=== PATIENT | male | born 1985 | race Two or more races ===

== ENCOUNTER 2025-03-30 10:00 | Outpatient (AMB) | payer OTHER, SELFPAY ==
[2025-03-30 10:10] VITALS: BP 122/76; PULSE 81; RESP 18; TEMP 36.2; O2SAT 97; BMI 25.3
--- NOTE | 2025-03-30 10:10 | MHC.PC.OV ---
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 Accompanied by: Self / Same As Patient Allergies No Known Allergies Allergy (Verified 03/30/25 10:40) Medication List - Last Reconciled 03/30/25 by BETSY Ceja buprenorphine-naloxone 2-0.5 mg (Suboxone) 1 film buccal DAILY Tobacco use date assessed: 03/30/25 Dental Screening Dental Screen Date: 03/30/25 Did you have a dental visit in the last 12 months?: No Did you have a dental problem in the last 6 months where you did not have access to dental care?: No Was dental information given to patient?: No 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 His primary complaint is frequent episodes of chest pain and tightness, which prompted him to make the appointment. These episodes are associated with pain radiating to his left arm, heart palpitations, and nausea. The symptoms occur spontaneously without a clear trigger. He also reports palpitations occurring without chest tightness. One severe episode prompted him to drive to the emergency room, but the symptoms subsided after three hours of waiting in his car, and he did not seek evaluation. Past medical history is significant for a prior history of opioid use (Percocet), and he is currently on Suboxone, which he obtains from the [facility] in [place]. He also reports chronic constipation, generalized fatigue, and feeling excessively sleepy after work. Family history is notable for his biological father having a myocardial infarction at age 36, requiring a stent. His maternal side has a history of heart problems, diabetes, and dementia. The patient did not reports anxiety or depression, however the patient scored 11 on the PHQ-9 and 6 on ONOFRE scale. 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 1. Little interest or pleasure in doing things: more than half the days 2. Feeling down, depressed, or hopeless: several days 3. Trouble falling or staying asleep, or sleeping too much: nearly every day 4. Feeling tired or having little energy: nearly every day 5. Poor appetite or overeating: several days 6. Feeling bad about yourself - or that you are a failure or have let yourself or your family down: not at all 7. Trouble concentrating on things, such as reading the newspaper or watching television: several days 8. Moving or speaking so slowly that other people could have noticed. Or the opposite - being so fidgety or restless that you have been moving around a lot more than usual: not at all 9. Thoughts that you would be better off or of hurting yourself in some way: not at all Total score: 11 Depression Screening Interpretation: Positive Depression Screening Done: Yes 74710 - PHQ-9 Billing: Yes Source: Developed by Drs. Flaquito Dumont, Yael Sumner, Isaac Doss and colleagues, with an educational amrit from [employer]. Thrive Questionnaire Date Thrive assessed: 03/30/25 I am a: Patient What is your living situation today?: I have a steady place to live Within the past 12 months, did the food you bought not last and you didn't have the money to get more?: Never true Within the past 12 months, did you worry whether your food would run out before you got money to buy more?: Never true Do you have trouble paying for medicines?: No Do you have trouble getting transportation to medical appointments?: No Do you have trouble paying your heating and electricity bill?: No Do you have trouble taking care of your child, family member or friend?: No Do you have trouble with day-to-day activities such as bathing, preparing meals, shopping, managing finances, etc.?: No Are you currently unemployed and looking for a job?: No Are you interested in more education?: No Please select the resources that you would like help with: None Currently or been in a relationship where the following occur: No concerns reported THRIVE Score: 0 AUDIT C Alcohol Use Questionnaire (AUDIT-C) 1. How often do you have a drink containing alcohol?: Monthly or less 2. How many drinks containing alcohol do you have on a typical day when you are drinking?: 1 or 2 3. How often do you have six or more drinks on one occasion?: Never Total Score: 1 ONOFRE-7 AMB Questionnaire ONOFRE-7 Date ONOFRE - 7 assessed: 03/30/25 Feeling nervous, anxious, or on edge: 1 = Several days Not being able to stop or control worryin = Not at all Worrying too much about different things: 1 = Several days Trouble relaxin = More than half the days Being so restless that it is hard to sit still: 1 = Several days Becoming easily annoyed or irritable: 1 = Several days Feeling afraid as if something awful might happen: 0 = Not at all Total ONOFRE-7 score (0-4 normal; 5-9 mild; 10-14 moderate; 15-21 severe): 6 Source: Developed by Drs. Flaquito Dumont, Yael Sumner, Isaac Doss and colleagues, with an educational amrit from [employer] ONOFRE-7 Assessment Billing ONOFRE-7 Assessment Tool: ONOFRE-7 Assessment 18594 Review of Systems Const Reports daytime sleepiness (-usually after work), Reports fatigue (Generalized) and Denies headache(s) Eyes Denies loss of vision ENT Denies vertigo, Reports dizziness (Associated with heart palpitation and chest tightness), Denies headache(s) and Denies sore throat Card Reports chest pain (Recurrent), Reports rapid heart rate (Recurrent), Denies leg edema, Denies lightheadedness and Reports radiating jaw, neck or arm pain (Down left arm-recurrent) Resp Denies cough, Denies hemoptysis and Denies wheezing GI Denies abdominal pain, Denies melena, Reports constipation, Denies diarrhea, Reports nausea and Denies vomiting Denies dysuria, Denies urinary frequency and Denies urinary urgency Musc Denies arthralgias, Denies joint swelling, Denies numbness and Denies tingling Neuro Denies Abnormal speech present, Denies behavioral changes, Denies vertigo, Reports dizziness (Associated with heart palpitation and chest tightness), Denies headache(s), Denies loss of vision, Denies memory loss, Denies numbness and Denies tingling Psych Denies anxiety, Denies behavioral changes, Denies depression, Denies memory loss and Denies panic attacks Endo Reports fatigue (Generalized) Vicente/Lymph Denies easy bleeding and Denies easy bruising Aller/Immun Denies wheezing Physical exam (Primary Care) Vital Signs: Last Vital Signs Temp 97.1 F 03/30/25 10:10 Pulse 81 03/30/25 10:10 Resp 18 03/30/25 10:10 BP 122/76 03/30/25 10:10 Pulse Ox 97 03/30/25 10:10 Oxygen Delivery Method Room Air 03/30/25 10:10 BMI result Body Mass Index 25.3 Tobacco/Smoking Status: Tobacco use Status Tobacco use date assessed 03/30/25 03/30/25 10:17 Patient Tobacco Use Status Never used Tobacco 03/30/25 10:17 e-Cigarette/Vaping Use Never Used 03/30/25 10:17 PHQ-9: PHQ-9 Score PHQ-9: Total score 11 03/30/25 10:40 Depression Screening Interpretation: Positive Thrive Assessment: Date of Thrive Assessment Date Thrive assessed 03/30/25 03/30/25 10:17 Currently or been in a relationship where the following occur: No concerns reported Const General: healthy appearing, no acute distress, alert and awake Nutritional Appearance: well nourished Orientation/consciousness: oriented to person, oriented to place and oriented to time HENMT Ears: TM's normal bilaterally General nose exam: Normal nasal mucous membranes and turbinates present Eyes Conjunctivae: conjunctivae normal Sclerae: sclerae normal Pupils: Equal, round and reactive pupils present Neck Neck: Yes no lymphadenopathy and Yes no JVD Thyroid: Thyroid normal Carotids: no bruits Resp Effort & Inspection: normal respiratory effort and not tachypneic Auscultation: no crackles, no rales, no rhonchi and no wheezes Cardio Rate: regular rate Rhythm: regular rhythm Heart sounds: S1 normal heart sound present, S2 normal heart sound present, no murmurs and normal S1 and S2 GI Palpation (GI): Soft to palpation, nontender, no hepatomegaly and no splenomegaly Auscultation: normal bowel sounds Skin General skin exam: no rashes or lesions noted and dry skin Neuro General: oriented to person, oriented to place and oriented to time Cranial nerves: Yes Equal, round and reactive pupils present Speech: No Abnormal speech present Gait exam (Neuro): Normal gait present Motor exam (neuro): no tremor noted Extrem Right upper extremity: full ROM Left upper extremity: full ROM Right lower extremity: full ROM; no edema Left lower extremity: full ROM; no edema Psych Mental Status: mental status grossly normal Speech and movement: Normal speech and movement present Affect: normal affect Attitude: cooperative Thought process: Normal thought process present Coding Level of Care Code New Pt Level 4 (02757) Diagnoses Precordial pain R07.2 Chest pain type: precordial pain Heart palpitations R00.2 Familial heart disease I51.89 History of opioid abuse F11.11 Low energy R53.83 Constipation, unspecified constipation type K59.00 Constipation type: unspecified constipation type Additional Codes PHQ-9 - 16712 - PHQ-9 Billing: Yes ([id number]) ONOFRE-7 Assessment Billing - ONOFRE-7 Assessment Tool: ONOFRE-7 Assessment 36299 ([id number]) Time Spent (min) 38 Assessment & Plan Assessment & Plan (1) Chest pain: Code(s): R07.9 - Chest pain, unspecified Category: Medical Qualifiers: Chest pain type: precordial pain Qualified Code(s): R07.2 - Precordial pain Plan: The patient's symptoms of chest pain, left arm radiation, and palpitations are highly concerning, particularly given his strong family history of premature coronary artery disease, with his father having a myocardial infarction at age 36. The main goal is to rule out a cardiac etiology. A comprehensive cardiac workup will be initiated, including a full panel of fasting labs, an EKG, a 7-day Holter monitor to capture any arrhythmias, and a cardiac stress test. Counseling was provided on increasing hydration, as dehydration can contribute to palpitations and cardiac strain. (2) Heart palpitations: Code(s): R00.2 - Palpitations Category: Medical Plan: Labs ordered to further evaluate along with a 7 day Holter monitor. Avoid triggers like caffeine and alcohol (3) Familial heart disease: Code(s): I51.89 - Other ill-defined heart diseases Category: Medical Plan: Patient father had a myocardial infarction at 30 6 years old and needed to be stented. We will complete a full cardiac workup to further evaluate his complaints. (4) History of opioid abuse: Code(s): F11.11 - Opioid abuse, in remission Category: Medical Plan: Patient has a history of opioid use. He is currently on Suboxone therapy. Follow up with Suboxone clinic as scheduled (5) Low energy: Code(s): R53.83 - Other fatigue Category: Medical Plan: The patient reports constant fatigue and lack of energy. In response to his request, a testosterone level will be included in the lab workup to evaluate for a potential hormonal contribution. (6) Constipation: Code(s): K59.00 - Constipation, unspecified Category: Medical Qualifiers: Constipation type: unspecified constipation type Qualified Code(s): K59.00 - Constipation, unspecified Plan: The patient's chronic constipation is likely multifactorial, related to his reported low water intake, high soda consumption, and possible low dietary fiber. He was counseled to significantly increase his daily fluid intake and consider trying a fiber supplement. Orders: Orders Hemoglobin A1c 03/30/25 R00.2 - Palpitations, R07.89 - Other chest pain, R07.9 - Chest pain, unspecified, R53.83 - Other fatigue, Z00.00 - Encounter for general adult medical examination without abnormal findings Testosterone, Free/Total 03/30/25 R00.2 - Palpitations, R07.89 - Other chest pain, R07.9 - Chest pain, unspecified, R53.83 - Other fatigue, Z00.00 - Encounter for general adult medical examination without abnormal findings TSH reflex Free T4 03/30/25 R00.2 - Palpitations, R07.89 - Other chest pain, R07.9 - Chest pain, unspecified, R53.83 - Other fatigue, Z00.00 - Encounter for general adult medical examination without abnormal findings Vitamin D 25-OH Total 03/30/25 R00.2 - Palpitations, R07.89 - Other chest pain, R07.9 - Chest pain, unspecified, R53.83 - Other fatigue, Z00.00 - Encounter for general adult medical examination without abnormal findings Complete Blood Count Auto Diff 03/30/25 R00.2 - Palpitations, R07.89 - Other chest pain, R07.9 - Chest pain, unspecified, R53.83 - Other fatigue, Z00.00 - Encounter for general adult medical examination without abnormal findings Comprehensive [place]. Panel Fast 03/30/25 R00.2 - Palpitations, R07.89 - Other chest pain, R07.9 - Chest pain, unspecified, R53.83 - Other fatigue, Z00.00 - Encounter for general adult medical examination without abnormal findings Lipid Panel 03/30/25 R00.2 - Palpitations, R07.89 - Other chest pain, R07.9 - Chest pain, unspecified, R53.83 - Other fatigue, Z00.00 - Encounter for general adult medical examination without abnormal findings CRP High Sensitivity 03/30/25 R00.2 - Palpitations, R07.89 - Other chest pain, R07.9 - Chest pain, unspecified, R53.83 - Other fatigue, Z00.00 - Encounter for general adult medical examination without abnormal findings ECG 12 lead EKG 03/30/25 I51.89 - Other ill-defined heart diseases, R07.89 - Other chest pain, R07.9 - Chest pain, unspecified CA stress test 03/30/25 I51.89 - Other ill-defined heart diseases, R07.9 - Chest pain, unspecified UA CC w/rflx Micro + Cult 03/30/25 R00.2 - Palpitations, R07.89 - Other chest pain, R07.9 - Chest pain, unspecified, R53.83 - Other fatigue, Z00.00 - Encounter for general adult medical examination without abnormal findings HIV Ab/Ag 03/30/25 R00.2 - Palpitations, R07.89 - Other chest pain, R07.9 - Chest pain, unspecified, R53.83 - Other fatigue, Z00.00 - Encounter for general adult medical examination without abnormal findings Syphilis Screen 03/30/25 R00.2 - Palpitations, R07.89 - Other chest pain, R07.9 - Chest pain, unspecified, R53.83 - Other fatigue, Z00.00 - Encounter for general adult medical examination without abnormal findings CT NG by PCR Urine 03/30/25 R00.2 - Palpitations, R07.89 - Other chest pain, R07.9 - Chest pain, unspecified, R53.83 - Other fatigue, Z00.00 - Encounter for general adult medical examination without abnormal findings Erythrocyte Sedimentation Rate 03/30/25 R00.2 - Palpitations, R07.89 - Other chest pain, R07.9 - Chest pain, unspecified, R53.83 - Other fatigue, Z00.00 - Encounter for general adult medical examination without abnormal findings ECG 7 day holter monitor 03/30/25 R00.2 - Palpitations
== END 2025-03-30 11:10 | disposition home or self-care (01) ==
LOC: HO.HMCH 10:01
PROVIDERS: PCP Internal Medicine
DX: R07.2 Precordial pain (principal); R00.2 Palpitations; I51.89 Other ill-defined heart diseases; F11.11 Opioid abuse, in remission; R53.83 Other fatigue; K59.00 Constipation, unspecified

== ENCOUNTER → 2025-03-30 10:00 | Outpatient (BNVA) | payer OTHER, SELFPAY | PROVIDERS: PCP Internal Medicine | DX: Z00.00 Encounter for general adult medical examination without abnormal findings (principal); R07.2 Precordial pain; R00.2 Palpitations; I51.89 Other ill-defined heart diseases; F11.11 Opioid abuse, in remission; R53.83 Other fatigue; K59.00 Constipation, unspecified | CPT/HCPCS: 96127 ==

== ENCOUNTER 2025-05-05 10:00 | Outpatient (REF) | payer OTHER, SELFPAY ==
[2025-05-05 10:37] LABS: MANUAL DIFF FLAG NO
[2025-05-05 10:42] LABS: Hematocrit 42.8 % (42.0-52.0); Hemoglobin 14.8 g/dl (14.0-18.0); Mean Corpuscular HGB Conc 34.6 g/dl (31.0-36.0); Mean Corpuscular Hemoglobin 29.4 pg (27.0-33.0); Mean Corpuscular Volume 85.1 fL (80.0-98.0); Red Blood Count 5.03 X10*6/uL (4.60-5.80); White Blood Count 4.8 X10*3/uL (4.8-10.8)
[2025-05-05 10:43] LABS: Imm Gran Abs Auto 0.02 X10*3/uL (0.00-0.03); Imm Gran Pct Auto 0.4 % (0.0-0.4); Lymphocytes Absolute Auto 1.8 X10*3/uL (1.2-4.9); NRBC Abs Auto 0.000 X10*3/uL (0.0-0.012); NRBC Pct Auto 0.0 /100WBC (0.0-0.2); Platelet Count 297 X10*3/uL (160-400)
[2025-05-05 11:21] LABS: Erythrocyte Sedimentation Rate 8 MM/HR (0-15)
[2025-05-05 11:24] LABS: Alanine Aminotransferase 92 U/L (0-40); Albumin Level 4.8 g/dL (3.5-5.0); Alkaline Phosphatase 88 U/L (39-117); Anion Gap 13 (12-20); Aspartate Amino Transferase 36 U/L (5-37); Blood Urea Nitrogen 10 mg/dL (9-16); Calcium 9.8 mg/dL (8.4-10.2); Carbon Dioxide 26 mmol/L (22-29); Chloride 109 mmol/L (96-108); Cholesterol 194 mg/dL (<200); Estimated Glomerular Filt Rate > 60; HDL Cholesterol 42 mg/dL (>40); Potassium 4.2 mmol/L (3.3-5.1); Sodium 144 mmol/L (135-145); Total Protein 7.9 g/dL (6.5-8.0); Triglycerides 89 mg/dL (<150)
[2025-05-05 11:36] LABS: HIV Num 1 0.06 S/CO (0.00-0.99); Syphilis Screen Nonreactive (Nonreactive)
[2025-05-05 11:54] LABS: Appearance Urine Clear; Glucose Urine UA Negative (Negative); PH 5.5 (5.0-9.0); Specific Gravity - Urine 1.025 (1.005-1.025)
[2025-05-05 13:25] LABS: CT PCR Urine NOT DETECTED (Not Detect.); NG PCR Urine NOT DETECTED (Not Detect.)
== END 2025-05-05 10:01 | disposition home or self-care (01) ==
LOC: HO.LAB 10:00
DX: Z00.00 Encounter for general adult medical examination without abnormal findings (principal); Z13.1 Encounter for screening for diabetes mellitus; Z11.4 Encounter for screening for human immunodeficiency virus [HIV]; R07.89 Other chest pain; R53.83 Other fatigue; R00.2 Palpitations; Z20.2 Contact with and (suspected) exposure to infections with a predominantly sexual mode of transmission
CPT/HCPCS: 80053; 80061; 81003; 82306; 83036; 84402; 84403; 84443; 85025; 85652; 86141; 86780; 87389; 87491; 87591

== ENCOUNTER → 2025-05-21 07:19 | Outpatient (REF) | payer OTHER, SELFPAY ==
--- NOTE | 2025-05-21 07:32 | ECG_ITS ---
Test Reason : CHEST PAIN Blood Pressure : */* mmHG Vent. Rate : 70 BPM Atrial Rate : 70 BPM P-R Int : 136 ms QRS Dur : 78 ms QT Int : 354 ms P-R-T Axes : 40 36 21 degrees QTcB Int : 382 ms Normal sinus rhythm Normal ECG When compared with ECG of 11-Apr-2018 21:33, T wave inversion now evident in Inferior leads Referred By: Adriel Newman Electronically Signed By: CAPRICE RICH MD
--- NOTE | 2025-05-21 07:32 | CA_ITS ---
Acquisition Time: 2025-05-21 08:10:56 Total Exercise Time: 00:10:35 Test Indications: CP Medications: SUBOXONE Protocol: ABDIRAHMAN Max HR: 160 BPM 87% of Pred: 182 BPM Max BP: 170/70 mmHG Max Work Load: 12.7 METS Exercise stress test with exercise 10 mins 35 secs of Abdirahman Protocol, achieving 87% MPHR, without any reports of SOB or CP, without any arrythmias, with normotensive response to exercise. Without any EKG changes meeting criteria for ischemia. In recovery, pt continued to feel well. Test reviewed with Dr. Weeks. Referred By: Adriel Newman Electronically Signed By: Andrea Jones
== END ==
LOC: HO.CARD 07:19
DX: I51.89 Other ill-defined heart diseases (principal); R07.89 Other chest pain; R00.2 Palpitations
CPT/HCPCS: 93005; 93017

== ENCOUNTER → 2025-05-21 07:32 | Outpatient (BNV) | payer OTHER, SELFPAY | PROVIDERS: Visit Provider Internal Medicine Cardiovascular Disease | DX: R07.9 Chest pain, unspecified (principal) | CPT/HCPCS: 93010; 93016; 93018 ==

== ENCOUNTER 2025-05-23 08:05 | Outpatient (AMB) | payer OTHER, SELFPAY ==
--- NOTE | 2025-05-23 08:11 | A.OFFPC_ITS ---
Vital Signs 05/23/25 08:12 05/23/25 08:50 Height 5 ft 8 in Weight 161 lb BMI 24.5 BP 142/96 H 124/98 H Blood Pressure Location Lt brachial Lt brachial Position Sitting Sitting Respiration 16 Pulse 71 Pulse Source Pulse Oximeter Temp 98.3 F Temp Source Temporal Artery Scan Pulse Oximetry (%) 96 Oxygen Delivery Method Room Air Intake Visit Reasons: Physical Family Physician Required: No Accompanied by: Self / Same As Patient Allergies No Known Allergies Allergy (Verified 05/23/25 08:31) Medication List - Last Reconciled 05/23/25 by BETSY Ceja buprenorphine-naloxone 2-0.5 mg (Suboxone) 1 film buccal DAILY Tobacco use date assessed: 03/30/25 Dental Screening Dental Screen Date: 03/30/25 HPI Physical HPI Details Dentist: about a year and a half Eye: same, has upcoming appt Snellen: Right: Left: Corrected vision: yes, glasses and contacts STI screening: completed, neg Colonoscopy:n/a PHQ-9: Flu: no COVID: no Tdap:given in office today Diet:regular Exercise:not working out for now The patient is a 39 year old male presenting for review of diagnostic results and health maintenance. He recently underwent a stress test and EKG, both of which were normal, but he has not yet had his scheduled Holter monitor placed. He will call to schedule the Holter monitor placement. Lab results reviewed during the visit showed an elevated ALT of 92 (normal range 0-40), an LDL of 135 (target <100), and low vitamin D. His CBC, electrolytes, kidney function, and A1c were all within normal limits. The patient takes Suboxone and reports no alcohol use. His testosterone level was noted to be low- normal at 322. The patient reports a long-standing history of poor sleep for approximately 15 years, characterized by waking every two hours and difficulty shutting his mind off to fall asleep. He does not feel rested upon waking and denies any known history of snoring or waking up gasping for air. He previously tried melatonin without success. He also describes a burning and itching sensation under the skin of his legs that occurs with prolonged walking, which resolves with rest. There is no associated swelling. Regarding health maintenance, the patient has not had a dental or eye exam in about a year and a half. He has not received a tetanus shot in the last 10 years and declines flu and COVID-19 vaccinations. Health Maintenance The patient is pending a Holter monitor as part of his cardiac workup and will call to schedule this. He was counseled on and received a tetanus vaccination due to his occupational exposure. Discussion included the importance of regular exercise to improve testosterone levels and cholesterol. He was reminded he is overdue for dental and eye exams. 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 - Substance Use: He denies alcohol use. - Medication: The patient takes Suboxone . - Diet: He follows a regular diet, which includes frequent consumption of [employer]. - Salt Intake: He reports low salt intak e. - Exercise: He does not engage in a form al workout routine but remains active at work, taking between 15,000 and 20,000 steps daily. - Sleep: He reports chronic poor sleep f or about 15 years, waking every two hours and never feeling rested. Results - Labs: - CBC: Normal. - Comprehensive Metabolic Panel: Electro lytes and kidney function are good. - Liver Function Tests: ALT is elevated at 92 U/L (reference range: 0-40 U/L). - Lipid Panel: LDL is elevated at 135 mg /dL (target <100 mg/dL). - HDL is 42 mg/dL (target >40 mg/dL). - Hemoglobin A1c: Normal, patient is not diabetic. - Vitamin D: Low. - Testosterone: 322 ng/dL (reference ran ge: low 300s to 1000 ng/dL). - Urinalysis: Normal. - STD Screen: Negative. - Tests and Diagnostics: - EKG: Normal. - Stress Test: Normal. HPI Comments History of Present Illness Details The patient is a 39 year old male presenting for review of diagnostic results and health maintenance. He recently underwent a stress test and EKG, both of which were normal, but he has not yet had his scheduled Holter monitor placed. He will call to schedule the Holter monitor placement. Lab results reviewed during the visit showed an elevated ALT of 92 (normal range 0-40), an LDL of 135 (target <100), and low vitamin D. His CBC, electrolytes, kidney function, and A1c were all within normal limits. The patient takes Suboxone and reports no alcohol use. His testosterone level was noted to be low- normal at 322. The patient reports a long-standing history of poor sleep for approximately 15 years, characterized by waking every two hours and difficulty shutting his mind off to fall asleep. He does not feel rested upon waking and denies any known history of snoring or waking up gasping for air. He previously tried melatonin without success. He also describes a burning and itching sensation under the skin of his legs that occurs with prolonged walking, which resolves with rest. There is no associated swelling. Regarding health maintenance, the patient has not had a dental or eye exam in about a year and a half. He has not received a tetanus shot in the last 10 years and declines flu and COVID-19 vaccinations. Health Maintenance The patient is pending a Holter monitor as part of his cardiac workup and will call to schedule this. He was counseled on and received a tetanus vaccination due to his occupational exposure. Discussion included the importance of regular exercise to improve testosterone levels and cholesterol. He was reminded he is overdue for dental and eye exams. 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 - Substance Use: He denies alcohol use. - Medication: The patient takes Suboxone . - Diet: He follows a regular diet, which includes frequent consumption of [employer]. - Salt Intake: He reports low salt intak e. - Exercise: He does not engage in a form al workout routine but remains active at work, taking between 15,000 and 20,000 steps daily. - Sleep: He reports chronic poor sleep f or about 15 years, waking every two hours and never feeling rested. Results - Labs: - CBC: Normal. - Comprehensive Metabolic Panel: Electro lytes and kidney function are good. - Liver Function Tests: ALT is elevated at 92 U/L (reference range: 0-40 U/L). - Lipid Panel: LDL is elevated at 135 mg /dL (target <100 mg/dL). - HDL is 42 mg/dL (target >40 mg/dL). - Hemoglobin A1c: Normal, patient is not diabetic. - Vitamin D: Low. - Testosterone: 322 ng/dL (reference ran ge: low 300s to 1000 ng/dL). - Urinalysis: Normal. - STD Screen: Negative. - Tests and Diagnostics: - EKG: Normal. - Stress Test: Normal. 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 Depression Screening Interpretation: Positive Depression Screening Done: Yes Source: Developed by Drs. Flaquito Dumont, Yael Sumner, Isaac Doss and colleagues, with an educational amrit from [employer]. Thrive Questionnaire Date Thrive assessed: 03/30/25 I am a: Patient What is your living situation today?: I have a steady place to live Within the past 12 months, did the food you bought not last and you didn't have the money to get more?: Never true Within the past 12 months, did you worry whether your food would run out before you got money to buy more?: Never true Do you have trouble paying for medicines?: No Do you have trouble getting transportation to medical appointments?: No Do you have trouble paying your heating and electricity bill?: No Do you have trouble taking care of your child, family member or friend?: No Do you have trouble with day-to-day activities such as bathing, preparing meals, shopping, managing finances, etc.?: No Are you currently unemployed and looking for a job?: No Are you interested in more education?: No Currently or been in a relationship where the following occur: No concerns reported THRIVE Score: 0 ONOFRE-7 AMB Questionnaire ONOFRE-7 Date ONOFRE - 7 assessed: 03/30/25 Source: Developed by Drs. Flaquito Dumont, Yael Sumner, Isaac Doss and colleagues, with an educational amrit from [employer]. Review of Systems Const Reports daytime sleepiness (-usually after work), Reports difficulty sleeping, Reports fatigue (Generalized) and Denies headache(s) Eyes Denies loss of vision ENT Denies vertigo, Reports dizziness (Associated with heart palpitation and chest tightness), Denies headache(s) and Denies sore throat Card Reports chest pain (Recurrent), Reports rapid heart rate (Recurrent), Denies leg edema, Denies lightheadedness and Reports radiating jaw, neck or arm pain (Down left arm-recurrent) Resp Denies cough, Denies hemoptysis and Denies wheezing GI Denies abdominal pain, Denies melena, Reports constipation, Denies diarrhea, Reports nausea and Denies vomiting Denies dysuria, Denies urinary frequency and Denies urinary urgency Musc Denies arthralgias, Denies joint swelling, Denies numbness and Denies tingling Neuro Denies Abnormal speech present, Denies behavioral changes, Denies vertigo, Reports dizziness (Associated with heart palpitation and chest tightness), Denies headache(s), Denies loss of vision, Denies memory loss, Denies numbness, Denies tingling and Reports paresthesias (in both legs) Psych Denies anxiety, Denies behavioral changes, Denies depression, Denies memory loss and Denies panic attacks Endo Reports fatigue (Generalized) Vicente/Lymph Denies easy bleeding and Denies easy bruising Aller/Immun Denies wheezing Physical exam (Primary Care) Vital Signs: Last Vital Signs Temp 98.3 F 05/23/25 08:12 Pulse 71 05/23/25 08:12 Resp 16 05/23/25 08:12 BP 124/98 H 05/23/25 08:50 Pulse Ox 96 05/23/25 08:12 Oxygen Delivery Method Room Air 05/23/25 08:12 BMI result Body Mass Index 24.5 Tobacco/Smoking Status: Tobacco use Status Tobacco use date assessed 03/30/25 05/23/25 08:17 Patient Tobacco Use Status Never used Tobacco 05/23/25 08:17 e-Cigarette/Vaping Use Never Used 05/23/25 08:17 Depression Screening Interpretation: Positive Thrive Assessment: Date of Thrive Assessment Date Thrive assessed 03/30/25 05/23/25 08:17 Currently or been in a relationship where the following occur: No concerns reported Const General: healthy appearing, no acute distress, alert and awake Nutritional Appearance: well nourished Orientation/consciousness: oriented to person, oriented to place and oriented to time HENMT Ears: TM's normal bilaterally General nose exam: Normal nasal mucous membranes and turbinates present Eyes Conjunctivae: conjunctivae normal Sclerae: sclerae normal Pupils: Equal, round and reactive pupils present Neck Neck: Yes no lymphadenopathy and Yes no JVD Thyroid: Thyroid normal Carotids: no bruits Resp Effort & Inspection: normal respiratory effort and not tachypneic Auscultation: no crackles, no rales, no rhonchi and no wheezes Cardio Rate: regular rate Rhythm: regular rhythm Heart sounds: S1 normal heart sound present, S2 normal heart sound present, no murmurs and normal S1 and S2 GI Palpation (GI): Soft to palpation, nontender, no hepatomegaly and no splenomegaly Auscultation: normal bowel sounds General: Yes no CVA tenderness Back/Spine/Pelvis Back: no CVA tenderness Skin General skin exam: no rashes or lesions noted and dry skin Neuro General: oriented to person, oriented to place and oriented to time Cranial nerves: Yes CN's II-XII intact bilaterally, Yes Equal, round and reactive pupils present and Yes Nystagmus not present Speech: No Abnormal speech present Gait exam (Neuro): Normal gait present Motor exam (neuro): 5/5 motor strength present throughout and no tremor noted Deep tendon reflexes (DTR's): Right triceps reflex intensity grade: 2+, Left triceps reflex intensity grade: 2+, Rt Biceps (C5, C6): 2+, Left biceps reflex intensity grade: 2+, Right brachioradialis reflex intensity grade: 2+, Left brachioradialis reflex intensity grade: 2+, Right patellar reflex intensity grade: 2+ and Left patellar reflex intensity grade: 2+ Extrem Right upper extremity: full ROM Left upper extremity: full ROM Right lower extremity: full ROM; no edema Left lower extremity: full ROM; no edema Psych Mental Status: mental status grossly normal Speech and movement: Normal speech and movement present Affect: normal affect Attitude: cooperative Thought process: Normal thought process present Immunizations Tenivac (PF) 5 Lf unit-2 Lf unit/0.5 mL intramuscular syringe Performing Provider: BETSY Ceja [facility] Administered by: DANIEL Martin on 05/23/25 09:10 Dose Route Admin Location Dispensed Lot Number Expiration Date [employer] 0.5 mL IM Left Deltoid 0.5 mL [id number] 07/29/26 [id number] [employer] Total Dispensed Waste 0.5 mL 0 % VIS Given Date VIS Provided VIS Publication Date 05/23/25 Single Vaccine 21 Eligibility Eligibility Date Funding Source Not [facility] Eligible 05/23/25 Private Results Reviewed Results Reviewed: Laboratory Tests 05/05/25 05/05/25 10:22 10:35 WBC 4.8 RBC 5.03 Hgb 14.8 Hct 42.8 MCV 85.1 MCH 29.4 MCHC 34.6 RDW 12.2 Plt Count 297 Sodium 144 Potassium 4.2 Chloride 109 H Carbon Dioxide 26 Anion Gap 13 BUN 10 Creatinine 1.04 Estimated GFR > 60 Fasting Glucose 98 Estimat Average Glucose 103 Hemoglobin A1c % 5.2 Calcium 9.8 Total Bilirubin 0.6 AST 36 ALT 92 H Alkaline Phosphatase 88 C-React Prot High Sens 1.5 Total Protein 7.9 Albumin 4.8 Triglycerides 89 Cholesterol 194 LDL Cholesterol, Calc 135 H HDL Cholesterol 42 25-OH Vitamin D Total 7.2 L TSH 1.39 Total Testosterone 322 Fr Testosterone Dialys 78.6 Urine Color Yellow Urine Appearance Clear Urine pH 5.5 Ur Specific [place] 1.025 Urine Protein Negative Urine Glucose (UA) Negative Urine Ketones Negative Urine Blood Negative Urine Nitrite Negative Ur Leukocyte Esterase Negative Ur N gonorrhoeae DNA (PCR) NOT DETECTED T.pallidum Ab (EIA) Nonreactive Ur Chlamydia DNA (PCR) NOT DETECTED HIV 1&2 Ab/P24 Ag 4thGn Nonreactive Coding Level of Care Code Est Pt Prev Care 18-39y(43034) Diagnoses Annual physical exam Z00.00 Precordial pain R07.2 Chest pain type: precordial pain Heart palpitations R00.2 Familial heart disease I51.89 History of opioid abuse F11.11 Low energy R53.83 Constipation, unspecified constipation type K59.00 Constipation type: unspecified constipation type Pure hypercholesterolemia E78.00 Hyperlipidemia type: pure hypercholesterolemia Elevated liver enzymes R74.8 Paresthesia of bilateral legs R20.2 Elevated blood pressure reading without diagnosis of hypertension R03.0 Insomnia, unspecified type G47.00 Insomnia type: unspecified Time Spent (min) 36 Assessment & Plan Assessment & Plan (1) Annual physical exam: Code(s): Z00.00 - Encounter for general adult medical examination without abnormal findings Category: Medical Plan: Preventative guidelines and recent labs reviewed with the patient (2) Chest pain: Code(s): R07.9 - Chest pain, unspecified Category: Medical Qualifiers: Chest pain type: precordial pain Qualified Code(s): R07.2 - Precordial pain Plan: The patient's symptoms of chest pain, left arm radiation, and palpitations are highly concerning, particularly given his strong family history of premature coronary artery disease, with his father having a myocardial infarction at age 36. The main goal is to rule out a cardiac etiology. A comprehensive cardiac workup will be initiated, including a full panel of fasting labs, an EKG, a 7- day Holter monitor to capture any arrhythmias, and a cardiac stress test. Counseling was provided on increasing hydration, as dehydration can contribute to palpitations and cardiac strain. The patient completed a cardiac stress test with normal findings. Holter monitor still pending, the patient reports that he has to make an appt to pickup the equipment. Will order an echocardigram to significantly elevated diastolic pressure. (3) Heart palpitations: Code(s): R00.2 - Palpitations Category: Medical Plan: Labs ordered to further evaluate along with a 7 day Holter monitor. Avoid triggers like caffeine and alcohol. Labs non-signficant, holter monitor pending. (4) Familial heart disease: Code(s): I51.89 - Other ill-defined heart diseases Category: Medical Plan: Patient father had a myocardial infarction at 36 years old and needed to be stented. We will complete a full cardiac workup to further evaluate his complaints. (5) History of opioid abuse: Code(s): F11.11 - Opioid abuse, in remission Category: Medical Plan: Patient has a history of opioid use. He is currently on Suboxone therapy. Follow up with Suboxone clinic as scheduled (6) Low energy: Code(s): R53.83 - Other fatigue Category: Medical Plan: The patient reports constant fatigue and lack of energy. In response to his request, a testosterone level will be included in the lab workup to evaluate for a potential hormonal contribution. (7) Constipation: Code(s): K59.00 - Constipation, unspecified Category: Medical Qualifiers: Constipation type: unspecified constipation type Qualified Code(s): K59.00 - Constipation, unspecified Plan: The patient's chronic constipation is likely multifactorial, related to his reported low water intake, high soda consumption, and possible low dietary fiber. He was counseled to significantly increase his daily fluid intake and consider trying a fiber supplement. (8) HLD (hyperlipidemia): Code(s): E78.5 - Hyperlipidemia, unspecified Category: Medical Qualifiers: Hyperlipidemia type: pure hypercholesterolemia Qualified Code(s): E78.00 - Pure hypercholesterolemia, unspecified Plan: The patient's LDL cholesterol is elevated at 135. He was counseled on dietary modifications, including reducing intake of fried foods, pork, red meat, egg yolks, and high-fat dairy products. He was also advised that exercise is beneficial. Cholesterol levels will be rechecked in three months (9) Elevated liver enzymes: Code(s): R74.8 - Abnormal levels of other serum enzymes Category: Medical Plan: The patient's ALT is elevated at 92, and he does not consume alcohol but takes Suboxone, which may be a contributing factor. Additional labs targeting liver function will be ordered to be completed as soon as possible. An ultrasound of the liver will be considered depending on the results of the new lab work. These labs will be rechecked in three months (10) Paresthesia of bilateral legs: Code(s): R20.2 - Paresthesia of skin Category: Medical Plan: The patient reports a burning and itching sensation in his legs with prolonged walking, suggestive of a circulation or nerve issue. An order for a nerve test for both legs will be placed, and the patient will be contacted for scheduling (11) Elevated blood pressure reading without diagnosis of hypertension: Code(s): R03.0 - Elevated blood-pressure reading, without diagnosis of hypertension Category: Medical Plan: The patient has had elevated diastolic blood pressure readings, with the latest being over 98. He denies a prior history of high blood pressure. The link between poor sleep, potential sleep apnea, and high blood pressure was discussed. He will return in four weeks for a blood pressure recheck with the nurse (12) Insomnia: Code(s): G47.00 - Insomnia, unspecified Category: Medical Qualifiers: Insomnia type: unspecified Qualified Code(s): G47.00 - Insomnia, unspecified Plan: The patient reports a 15-year history of poor, nonrestorative sleep. Trazodone was prescribed to aid with sleep. Plan Plan Patient was informed and verbally consented to the use of an ambient scribe for clinic note documentation during this visit. 1. Elevated Liver Enzymes The patient's ALT is elevated at 92, and he does not consume alcohol but takes Suboxone, which may be a contributing factor. Additional labs targeting liver function will be ordered to be completed as soon as possible. An ultrasound of the liver will be considered depending on the results of the new lab work. These labs will be rechecked in three months. 2. Hyperlipidemia The patient's LDL cholesterol is elevated at 135. He was counseled on dietary modifications, including reducing intake of fried foods, pork, red meat, egg yolks, and high-fat dairy products. He was also advised that exercise is beneficial. Cholesterol levels will be rechecked in three months. 3. Vitamin D Deficiency The patient has a low vitamin D level. He was advised to take [id number] vitamin D3 5000 IU daily. His vitamin D level will be rechecked in three months. 4. Elevated Blood Pressure Reading The patient has had elevated diastolic blood pressure readings, with the latest being over 98. He denies a prior history of high blood pressure. The link between poor sleep, potential sleep apnea, and high blood pressure was discussed. He will return in four weeks for a blood pressure recheck with the nurse. 5. Chronic Insomnia The patient reports a 15-year history of poor, nonrestorative sleep. Trazodone was prescribed to aid with sleep. 6. Paresthesia Of Lower Extremity The patient reports a burning and itching sensation in his legs with prolonged walking, suggestive of a circulation or nerve issue. An order for a nerve test for both legs will be placed, and the patient will be contacted for scheduling. Discussion Notes I reviewed the patient's recent lab results with him, highlighting the elevated ALT, high LDL cholesterol, and low vitamin D. I explained that the elevated liver enzyme needs further investigation, and we will start with additional, more specific blood tests for the liver. I discussed that a liver ultrasound may be the next step if the labs do not provide a clear answer. We discussed the importance of dietary changes to lower his LDL cholesterol, and I provided a list of high-cholesterol foods to moderate, including fried foods, red meat, and egg yolks. For his low vitamin D, I recommended he take an [id number] vitamin D3 5000 IU supplement daily. I addressed his concerns about elevated blood pressure and its potential link tohis chronic poor sleep and possible sleep apnea. I prescribed trazodone to help with his insomnia. I recommended he return in four weeks for a nurse visit to recheck his blood pressure. Regarding the burning and itching sensation in his legs, I explained it could be a nerve issue and ordered a nerve test to evaluate this further. 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 A follow-up visit in three months was scheduled to recheck his labs (liver enzymes, cholesterol, vitamin D). Patient Instructions - Please call to schedule your appointment to get the Holter monitor. - Go to the lab to have blood drawn for liver tests as soon as possible. You do not need to fast for this. - Take one Vitamin D3 5000 IU tablet by mouth every day. - To lower your cholesterol, reduce your intake of fried foods (like [employer]), pork, red meat, egg yolks, and high-fat dairy products. - Return in 4 weeks for a blood pressure check with the nurse. - You will be contacted to schedule a nerve test for your legs. - Follow up in 3 months to repeat labs and review your progress. - A prescription for Trazodone has been sent to your pharmacy to help with sleep. - Keep the tetanus injection site clean. It is normal for your arm to be sore tomorrow. You can take Tylenol if needed. If the site becomes very red or concerning, please contact the office. Orders: Orders Smooth Muscle Antibody 05/23/25 R74.8 - Abnormal levels of other serum enzymes Ferritin 05/23/25 R74.8 - Abnormal levels of other serum enzymes Prothrombin Time INR 05/23/25 R74.8 - Abnormal levels of other serum enzymes UA CC w/rflx Micro + Cult 3 Months E78.5 - Hyperlipidemia, unspecified, F11.11 - Opioid abuse, in remission, R00.2 - Palpitations, R07.2 - Precordial pain, R07.89 - Other chest pain, R74.8 - Abnormal levels of other serum enzymes Vitamin D 25-OH Total 3 Months E78.5 - Hyperlipidemia, unspecified, F11.11 - Opioid abuse, in remission, R00.2 - Palpitations, R07.2 - Precordial pain, R07.89 - Other chest pain, R74.8 - Abnormal levels of other serum enzymes NE electromyogram (EMG) Today R20.2 - Paresthesia of skin Hepatitis A,B,C Profile 05/23/25 R74.8 - Abnormal levels of other serum enzymes Complement C3 05/23/25 R74.8 - Abnormal levels of other serum enzymes Complement C4 05/23/25 R74.8 - Abnormal levels of other serum enzymes IRON PROFILE 05/23/25 R74.8 - Abnormal levels of other serum enzymes Complete Blood Count Auto Diff 3 Months E78.5 - Hyperlipidemia, unspecified, F11.11 - Opioid abuse, in remission, R00.2 - Palpitations, R07.2 - Precordial pain, R07.89 - Other chest pain, R74.8 - Abnormal levels of other serum enzymes Comprehensive [place]. Panel Fast 3 Months E78.5 - Hyperlipidemia, unspecified, F11.11 - Opioid abuse, in remission, R00.2 - Palpitations, R07.2 - Precordial pain, R07.89 - Other chest pain, R74.8 - Abnormal levels of other serum enzymes Lipid Panel 3 Months E78.5 - Hyperlipidemia, unspecified, F11.11 - Opioid abuse, in remission, R00.2 - Palpitations, R07.2 - Precordial pain, R07.89 - Other chest pain, R74.8 - Abnormal levels of other serum enzymes TSH reflex Free T4 3 Months E78.5 - Hyperlipidemia, unspecified, F11.11 - Opioid abuse, in remission, R00.2 - Palpitations, R07.2 - Precordial pain, R07.89 - Other chest pain, R74.8 - Abnormal levels of other serum enzymes Td Immunization 05/23/25 Z23 - Encounter for immunization NE nerve conduction velocity Today R20.2 - Paresthesia of skin CA echo transthoracic complete Today R07.2 - Precordial pain, R07.89 - Other chest pain Medications: New trazodone 50 mg PO BEDTIME PRN 30 tabs 3RF sleep
[2025-05-23 08:12] VITALS: BP 142/96; PULSE 71; RESP 16; TEMP 36.8; O2SAT 96; BMI 24.5
[2025-05-23 08:50] VITALS: BP 124/98
== END 2025-05-23 09:12 | disposition home or self-care (01) ==
LOC: HO.HMCH 08:06
PROVIDERS: PCP Internal Medicine
DX: Z23 Encounter for immunization (principal)

== ENCOUNTER → 2025-05-23 08:05 | Outpatient (BNVA) | payer OTHER, SELFPAY | PROVIDERS: PCP Internal Medicine | DX: Z00.00 Encounter for general adult medical examination without abnormal findings (principal); Z23 Encounter for immunization; R07.2 Precordial pain; R00.2 Palpitations; I51.89 Other ill-defined heart diseases; F11.11 Opioid abuse, in remission; R53.83 Other fatigue; K59.00 Constipation, unspecified; E78.00 Pure hypercholesterolemia, unspecified; R74.8 Abnormal levels of other serum enzymes; R20.2 Paresthesia of skin; R03.0 Elevated blood-pressure reading, without diagnosis of hypertension; G47.00 Insomnia, unspecified | CPT/HCPCS: 90471; 90714 ==